=== PATIENT | male | born 1995 | race Caucasian/White ===

== ENCOUNTER 2025-06-15 11:29 | Outpatient (REF) | payer BC, SELFPAY ==
--- OUTSIDE RECORDS SUMMARY | 2025-06-15 14:09 | XMS_ITS | Clinical Summary ---
Author Organization [employer] Address [address] [facility] [address] [place] [address] Care Team Providers Care Blender/Braze Applicator Name Role Phone Regino Patel MD Primary Care Prov ider Allergies No known active allergies Medications clotrimazole (Lotrimin) 1 % cream Apply topically 2 times daily for 28 days. 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 Pmhx: - Pshx: - All:- Meds: - Balanitis 06/03/2025 Assessment & Plan (06/03/2025 2:00 PM EDT): Will start on clotrimazole call back if not improving Encounters Date Type Department Care Team Description 06/03/2025 10:45 AM EDT Office Visit [facility] [address] [place] [address] Regino Patel MD Encounter for medical examination to establish care (Primary Dx); Fiona 06/03/2025 Travel 06/02/2025 Telephone [facility] [address] [place] [address] Regino Patel MD 06/02/2025 Telephone [facility] [address] [place] [address] Regino Patel MD chart prep 05/27/2025 Patient Outreach [facility] [address] [place] [address] King Cruz MD Pre-visit Planning (SDOH screening negative and Tobacco screening negative) 05/27/2025 Travel from Last 3 Months Family History Medical History Relation Name Comments Throat cancer Father No Known Problems Mother Relation Name Status Comments Father Mother Social History Tobacco Use Types Packs/Day Years Used Date Smoking Tobacco: Never Smokeless Tobacco: Never Tobacco Cessation:Counseling Given: Not Answered Alcohol Use Standard Drinks/Week Comments Yes 0 (1 standard drink = 0.6 oz pur e alcohol) on weekends Depression Answer Date Recorded Patient Health Questionnaire-9 Score 3 06/03/2025 Patient Health Questionnaire-9 Score 3 06/03/2025 Last PHQ-9: Questionnaire Data Not on file 0 06/03/2025 Housing Stability Answer Date Recorded What is your housing situation today? I have aubreybonny avina 05/27/[address] you li ve. Do you have problems with any of the following? None of the above 05/27/2025 Food Insecurity Answer Date Recorded Within the past 12 months, y ou worried that your food would run out before you got money to buy more: Never True 05/27/2025 Within the past 12 months,th e food you bought just didn't last and you didn't have enough money to get more: Never True Transportation Answer Date Recorded In the past 12 months, has l ack of transportation kept you from medical appts, meetings, work or from getting things needed for daily living? No 05/27/2025 Utilities Answer Date Recorded In the past 12 months, has t he electric, gas, oil or water company threatened to shut off services in your home? No 05/27/2025 Depression Answer Date Recorded Patient Health Questionnaire-2 Score 0 06/03/2025 Internet Access Answer Date Recorded Internet Access Q1 Yes 05/27/2025 Internet Access Q2 Not on file 05/27/2025 Sex and Gender Information Value Date Recorded Sex Assigned at Male 02/23/2025 12:56 PM EDT Legal Sex Male 12:55 PM EDT Gender Identity Male 02/23/2025 12:56 PM EDT Sexual Orientation Straight 06/03/2025 10 :35 AM EDT Last Filed Vital Signs Vital Sign Reading Time Taken Comments Blood Pressure 110/87 06/03/2025 10:56 AM EDT Pulse 80 06/03/2025 10:56 AM EDT Temperature 37.1 C (98.7 F) 06/03/2025 10:56 AM EDT Respiratory Rate 20 06/03/2025 10:56 AM EDT Oxygen Saturation - - Inhaled Oxygen Concentration - - Weight 69.4 kg (153 lb) 06/03/2025 10:56 AM EDT Height 175.3 cm (5' 9 ) 06/03/2025 10:56 AM EDT Body Mass Index 22.59 06/03/2025 10:56 AM EDT Plan of Treatment Health Maintenance Due Date Last Done Comments HIV Screening 1994 Family Planning (PISQ) 2009 HPV Vaccines (1 - Male 3-dos e series) 2009 Hepatitis C Screening 2012 DTaP/Tdap/Td Vaccines (1 - Tdap) 2013 Hepatitis B Vaccines (1 of 3 - 19+ 3-dose series) 2013 COVID-19 Vaccine (1 - 2023-2 5 season) 2025 Influenza Vaccine (#1) 2025 Disability Screening 05/27/2026 05/27/2025 SDOH Screening 05/27/2026 05/27/2025 Alcohol/Substance Use Screening 06/03/2026 06/03/2025 Depression Screening 06/03/2026 06/03/2025, 06/03/2025 Tobacco Screening 06/03/2026 06/03/2025 Zoster Vaccines (1 of 2) 2044 RSV Patients and Patients Aged 60 years or older (1 - 1-dose 75+ series) 2069 HIB Vaccines Aged Out No longer eligi ble based on patient's age to complete this topic Hepatitis A Vaccines Aged Out No long er eligible based on patient's age to complete this topic IPV Vaccines Aged Out No longer eligi ble based on patient's age to complete this topic Meningococcal B Vaccine Aged Out No l onger eligible based on patient's age to complete this topic Meningococcal Vaccine Aged Out No yair beatrice eligible based on patient's age to complete this topic Pneumococcal Vaccine: Pediatrics (0 to 5 Years) and At-Risk Patients (6 to 49) Years Aged Out No longer eligible b ased on patient's age to complete this topic RSV under 20 months Aged Out No longe r eligible based on patient's age to complete this topic Rotavirus Vaccines Aged Out No longer eligible based on patient's age to complete this topic [place] [address] [address] [place] [address] [employer] Care Teams Blender/Braze Applicator Relationship Specialty Start Date End Date Regino Patel MD [address] [place] [id number] PCP - General Internal Medicine 06/03/25
--- OUTSIDE RECORDS SUMMARY | 2025-06-15 14:09 | XMS_ITS | Encounter Summary ---
Author Organization [employer] Address [address] [facility] [address] [place] [address] Care Team Providers Care Lime Sludge Kiln Operator Name Role Phone Regino Patel MD Primary Care Prov ider Encounter Details Date Type Department Care Team ([facility] st Contact Info) Description 06/02/2025 Telephone [facility] [address] [place], [place] [phone] Regino Patel MD [address] [place], [place] [phone] Social History Tobacco Use Types Packs/Day Years Used Date Smoking Tobacco: Never Assessed Depression Answer Date Recorded Patient Health Questionnaire-9 Score 3 06/03/2025 Patient Health Questionnaire-9 Score 3 06/03/2025 Last PHQ-9: Questionnaire Data Not on file 0 06/03/2025 Housing Stability Answer Date Recorded What is your housing situation today? I have aubrey avina 05/27/[address] you [...] Orientation Straight 06/03/2025 10 :35 AM EDT documented as of this encounter Functional Status * Over the past 2 weeks, how often have you been bothered by any of the following problems? Question Answer Date of Assessment Author Patient Health Questionnaire-2 Score 0 05/12 10:58 AM Celeste Hunter [place] * Little interest or pleasure in doing things Answer Date of Assessment Author Not at all 06/03/2025 10:58 AM Salo Hunter [place] * Feeling down, depressed, or hopeless Answer Date of Assessment Author Not at all 06/03/2025 10:58 AM Salo Hunter [place] * Trouble falling or staying asleep, or sleeping too much Answer Date of Assessment Author Several days 06/03/2025 10:58 AM Salo Hunter [place] * Feeling tired or having little energy Answer Date of Assessment Author More than half the days 06/03/2025 10:58 AM Celeste Hunter [place] * Poor appetite or overeating Answer Date of Assessment Author Not at all 06/03/2025 10:58 AM Salo Hunter [place] * Feeling bad about yourself - or that you are a failure or have let yourself or your family down Answer Date of Assessment Author Not at all 06/03/2025 10:58 AM Salo Hunter [place] * Trouble concentrating on things, such as reading the newspaper or watching television Answer Date of Assessment Author Not at all 06/03/2025 10:58 AM Salo Hunter [place] * Moving or speaking so slowly that other people could have noticed? Or the opposite - being so fidgety or restless that you have been moving around a lot more than usual. Answer Date of Assessment Author Not at all 06/03/2025 10:58 AM Salo Hunter [place] * Thoughts that you would be better off or hurting yourself in some way Answer Date of Assessment Author Not at all 06/03/2025 10:58 AM Salo Hunter [place] * Patient Health Questionnaire-9 Score Answer Date of Assessment Author 3 06/03/2025 10:58 AM Salo Hunter [place] * How difficult have these problems made it for you to do your work, take care of things at home, or get along with other people? Answer Date of Assessment Author Not difficult at all 06/03/2025 10:58 AM Celeste Giang MA documented as of this encounter Plan of Treatment Not on file documented as of this encounter Visit Diagnoses Not on filedocumented in this encounter Care Teams Lime Sludge Kiln Operator Relationship Specialty Start Date End Date Regino Patel MD [address] [place] [id number] PCP - General Internal Medicine 06/03/25 documented as of this encounter
[2025-06-15 14:42] LABS: MANUAL DIFF FLAG NO
[2025-06-15 14:49] LABS: Hematocrit 43.6 % (42.0-52.0); Hemoglobin 14.8 g/dl (14.0-18.0); Imm Gran Abs Auto 0.02 X10*3/uL (0.00-0.03); Imm Gran Pct Auto 0.4 % (0.0-0.4); Lymphocytes Absolute Auto 1.5 X10*3/uL (1.2-4.9); Mean Corpuscular HGB Conc 33.9 g/dl (31.0-36.0); Mean Corpuscular Hemoglobin 30.6 pg (27.0-33.0); Mean Corpuscular Volume 90.3 fL (80.0-98.0); NRBC Abs Auto 0.000 X10*3/uL (0.0-0.012); NRBC Pct Auto 0.0 /100WBC (0.0-0.2); Platelet Count 174 X10*3/uL (160-400); Red Blood Count 4.83 X10*6/uL (4.60-5.80); White Blood Count 4.9 X10*3/uL (4.8-10.8)
[2025-06-15 15:14] LABS: Alanine Aminotransferase 30 U/L (0-40); Albumin Level 4.7 g/dL (3.5-5.0); Alkaline Phosphatase 91 U/L (39-117); Anion Gap 9 (12-20); Aspartate Amino Transferase 29 U/L (5-37); Blood Urea Nitrogen 11 mg/dL (9-16); Calcium 9.0 mg/dL (8.4-10.2); Carbon Dioxide 31 mmol/L (22-29); Chloride 104 mmol/L (96-108); Cholesterol 170 mg/dL (<200); Estimated Glomerular Filt Rate > 60; HDL Cholesterol 41 mg/dL (>40); Potassium 3.9 mmol/L (3.3-5.1); Sodium 140 mmol/L (135-145); Total Protein 7.0 g/dL (6.5-8.0); Triglycerides 42 mg/dL (<150)
[2025-06-16 07:47] LABS: Syphilis Screen Nonreactive (Nonreactive)
[2025-06-16 07:58] LABS: HIV Num 1 0.05 S/CO (0.00-0.99); ~HepC Num1 0.07 S/CO (0.00-0.79); ~Hepatitis C Antibody Nonreactive (Nonreactive)
== END 2025-06-15 11:30 | disposition home or self-care (01) ==
LOC: HO.CHCLDS 11:29
PROVIDERS: Visit Provider Internal Medicine
DX: Z00.00 Encounter for general adult medical examination without abnormal findings (principal); Z13.1 Encounter for screening for diabetes mellitus; Z13.6 Encounter for screening for cardiovascular disorders; Z13.29 Encounter for screening for other suspected endocrine disorder; Z11.4 Encounter for screening for human immunodeficiency virus [HIV]; Z11.59 Encounter for screening for other viral diseases
CPT/HCPCS: 36415; 80053; 80061; 83036; 84443; 85025; 86780; 86803; 87389